=== PATIENT | female | born 1975 | race Caucasian/White ===

== ENCOUNTER → 2019-02-11 08:06 | Outpatient (CLI) | payer MEDICAID ==
[2019-02-11 08:29] LABS: BASOPHILS 0.4 % (0-2); EOSINOPHILS 3.4 % (0-7); HEMATOCRIT 40.3 % (36.0-48.0); HEMOGLOBIN 13.3 g/dL (12-16); IMMATURE GRANULOCYTES 0.2 % (0-5); MCH 27.3 pg (26.0-34.0); MCV 82.8 fL (80.0-100.0); MEAN PLATELET VOLUME 9.7 fL (7.4-10.4); MONOCYTES 6.2 % (2-11); NEUTROPHILS 66.8 % (40-80); PLATELET COUNT 327 10x3/uL (130-400); RBC 4.87 10x6/uL (4.00-5.40); WBC 8.4 10x3/uL (4.8-10.8)
[2019-02-11 08:41] LABS: ALBUMIN 3.5 g/dL (3.4-5.0); ALKALINE PHOSPHATASE 65 U/L (46-116); ALT (SGPT) 95 U/L (10-68); AMYLASE - SERUM 34 U/L (25-115); BILIRUBIN - DIRECT 0.08 mg/dL (0.00-0.30); BILIRUBIN - INDIRECT 0.22 mg/dL (0.00-1.00); CALC OSMOLALITY 278 mosm/kg (275-300); CALCIUM 9.3 mg/dL (8.5-10.1); CARBON DIOXIDE 28.4 mmol/L (21.0-32.0); CHLORIDE - SERUM 104 mmol/L (98-107); CREATININE - SERUM 0.8 mg/dL (0.6-1.3); GLUCOSE 111 mg/dL (74-106); LIPASE 155 U/L (73-393); POTASSIUM - SERUM 4.3 mmol/L (3.5-5.1); PROTEIN - SERUM 7.6 g/dL (6.4-8.2); SODIUM 139 mmol/L (136-145); UREA NITROGEN 13 mg/dL (7-18); eGFR NON AFRICAN AMERICAN 84 mL/min (90-120)
== END | disposition home or self-care (01) ==
LOC: D.RAD 08:06 → EDBD 09:00 → D.RAD 09:00
PROVIDERS: ATTEND Internal Medicine Gastroenterology
DX: R13.10 Dysphagia, unspecified (principal)

== ENCOUNTER → 2019-02-15 08:56 | Outpatient (CLI) | payer BC ==
[2019-02-16 11:14] LABS: HEPATITIS C ANTIBODY <0.1 S/CO RAT (0.0-0.9)
== END | disposition home or self-care (01) ==
LOC: D.US 08:56
PROVIDERS: ATTEND Internal Medicine Gastroenterology
DX: R74.8 Abnormal levels of other serum enzymes (principal)

== ENCOUNTER → 2019-08-19 07:19 | Outpatient (CLI) | payer MEDICAID ==
[2019-08-19 08:01] LABS: ALBUMIN 3.1 g/dL (3.4-5.0); BILIRUBIN - DIRECT 0.07 mg/dL (0.00-0.30); BILIRUBIN - INDIRECT 0.08 mg/dL (0.00-1.00); BILIRUBIN - TOTAL 0.15 mg/dL (0.2-1.3); PROTEIN - SERUM 6.9 g/dL (6.4-8.2)
== END | disposition home or self-care (01) ==
LOC: D.LAB 07:19 → D.US 08:30
PROVIDERS: ATTEND Internal Medicine Gastroenterology
DX: K76.0 Fatty (change of) liver, not elsewhere classified (principal)